=== PATIENT | female | born 1960 | race Caucasian/White ===

== ENCOUNTER → 2020-01-15 09:24 | Outpatient (BNVA) | payer SELFPAY | PROVIDERS: PCP Nurse Practitioner; Visit Provider Family Medicine | DX: I10 Essential (primary) hypertension (principal); E55.9 Vitamin D deficiency, unspecified; E66.9 Obesity, unspecified; L82.1 Other seborrheic keratosis; F17.219 Nicotine dependence, cigarettes, with unspecified nicotine-induced disorders | CPT/HCPCS: 82043 ==

== ENCOUNTER → 2020-01-27 08:41 | Outpatient (BNVA) | payer SELFPAY | PROVIDERS: PCP Nurse Practitioner; Visit Provider Family Medicine | DX: I10 Essential (primary) hypertension (principal); E55.9 Vitamin D deficiency, unspecified | CPT/HCPCS: 80053; 80061; 82306; 85025 ==

== ENCOUNTER → 2020-04-07 08:10 | Outpatient (BNVA) | payer SELFPAY | PROVIDERS: PCP Nurse Practitioner; Visit Provider Family Medicine | DX: E78.5 Hyperlipidemia, unspecified (principal) | CPT/HCPCS: 80053 ==

== ENCOUNTER → 2020-05-04 08:44 | Outpatient (BNVA) | payer SELFPAY | PROVIDERS: PCP Nurse Practitioner; Visit Provider Family Medicine | DX: E78.5 Hyperlipidemia, unspecified (principal); E55.9 Vitamin D deficiency, unspecified; I10 Essential (primary) hypertension; K21.9 Gastro-esophageal reflux disease without esophagitis; F17.219 Nicotine dependence, cigarettes, with unspecified nicotine-induced disorders | CPT/HCPCS: 80053; 80061; 82306 ==

== ENCOUNTER 2021-03-01 18:07 | Outpatient (CLI) | payer OTHER, SELFPAY ==
[2021-03-02 00:02] LABS: Basophils # 0.1 10^3/uL (0.0-0.1); Basophils % 1.1 %; Eosinophils # 0.2 10^3/uL (0.0-0.8); Eosinophils % 2.6 %; Hematocrit 40.2 % (37.0-47.0); Hemoglobin 12.7 g/dL (11.5-15.3); Lymphocytes # 2.1 10^3/uL (0.8-4.8); Lymphocytes % 28.1 %; Mean Corpuscular HGB Conc 31.6 g/dL (30.0-36.0); Mean Corpuscular Volume 91.8 fl (81-99); Mean Platelet Volume 10.1 fL (7.4-10.4); Monocytes # 0.5 10^3/uL (0.2-0.9); Monocytes % 5.9 %; Neutrophils # 4.73 10^3/uL (1.8-7.7); Neutrophils % 62.2 %; Nucleated Red Blood Cells % 0 %; Platelet Count 418 10^3/cmm (130-400); Red Blood Count 4.38 10^6/uL (4.1-5.3); Red Cell Distribution Width 13.7 % (12.1-15.1); White Blood Count 7.6 10^3/uL (4.0-10.0)
[2021-03-02 00:24] LABS: Alanine Aminotransferase 7 U/L (0-33); Albumin Level 3.7 g/dL (3.5-5.2); Alkaline Phosphatase 78 IU/L (35-105); Anion Gap 14.9 (5-19); Aspartate Amino Transferase 5 U/L (0-32); Blood Urea Nitrogen 17 mg/dL (8-23); Calcium 9.5 mg/dL (8.5-10.5); Carbon Dioxide 25 mmol/L (22-29); Chloride 101 mmol/L (98-107); Chol HDL Ratio 3.81 mg/dL (0.0-4.40); Cholesterol 137 mg/dL (0-200); Globulin 3.1 g/dL (1.3-4.6); Glomerular Filtration Rate 50.5 mL/min (90-130); Glucose 103 mg/dL (65-115); HDL Cholesterol 36 mg/dL (60-100); LDL Cholesterol Calculated 65 mg/dL (50-129); LDL HDL Ratio 1.81 RATIO (0.00-3.22); Osmolality Calculated 286 mOsm/kg (285-295); Potassium 3.9 mmol/L (3.5-5.1); Sodium 137 mmol/L (136-145); Total Bilirubin 0.3 mg/dL (0.15-1.2); Total Protein 6.8 g/dL (6.6-8.7); Triglycerides 181 mg/dL (0-150)
[2021-03-02 02:27] LABS: Creatinine Urine, Random 188 mg/dL (28-217)
[2021-03-02 02:30] LABS: Microalbum Creatinine Ratio Ur 5 mg/dL (0-20); Microalbumin Random Urine 1 ug/dL (0-20)
== END 2021-03-01 18:08 | disposition home or self-care (01) ==
PROVIDERS: Visit Provider Family Medicine
DX: I10 Essential (primary) hypertension (principal)
CPT/HCPCS: 36415; 80053; 80061; 82044; 85025

== ENCOUNTER 2021-07-29 22:50 | Outpatient (CLI) | payer OTHER, SELFPAY ==
[2021-07-29 23:21] LABS: Add Urine Microscopic? NO; Charge for UA Resulting for Rev
[2021-07-29 23:24] LABS: Bilirubin Urine Neg (Negative); Blood Urine Neg (Negative); Glucose Urine UA Norm (Normal); Ketones Urine Negative (Negative); Leukocyte Esterase Urine Negative (Negative); Nitrate Urine Negative (Negative); Protein Urine Neg (Negative); Urine Appearance Clear (CLEAR); Urine Color Yellow (Yellow); Urobilinogen Urine Norm (Negative); pH Urine 5 (5-7)
[2021-07-29 23:29] LABS: Basophils # 0.1 10^3/uL (0.0-0.1); Basophils % 1.1 %; Eosinophils # 0.3 10^3/uL (0.0-0.8); Eosinophils % 3.8 %; Hematocrit 41.4 % (37.0-47.0); Hemoglobin 13.1 g/dL (11.5-15.3); Lymphocytes % 40.8 %; Mean Corpuscular HGB Conc 31.6 g/dL (30.0-36.0); Mean Corpuscular Hemoglobin 28.5 pg (28.0-34.0); Mean Corpuscular Volume 90.2 fl (81-99); Mean Platelet Volume 9.8 fL (7.4-10.4); Monocytes # 0.6 10^3/uL (0.2-0.9); Monocytes % 7.5 %; Neutrophils # 3.43 10^3/uL (1.8-7.7); Neutrophils % 46.5 %; Nucleated Red Blood Cells % 0 %; Platelet Count 446 10^3/cmm (130-400); Red Blood Count 4.59 10^6/uL (4.1-5.3); White Blood Count 7.4 10^3/uL (4.0-10.0)
[2021-07-29 23:40] LABS: Creatinine Urine, Random 105 mg/dL (28-217); Microalbum Creatinine Ratio Ur 10 mg/dL (0-20); Microalbumin Random Urine 1 ug/dL (0-20)
[2021-07-29 23:52] LABS: Albumin Level 4.5 g/dL (3.5-5.2); Blood Urea Nitrogen 15 mg/dL (8-23); Calcium 10.3 mg/dL (8.5-10.5); Carbon Dioxide 28 mmol/L (22-29); Chloride 100 mmol/L (98-107); Glomerular Filtration Rate 45.7 mL/min (90-130); Glucose 102 mg/dL (65-115); Phosphorus 4.4 mg/dL (2.5-4.5); Sodium 138 mmol/L (136-145)
[2021-07-30 00:02] LABS: Calcium 10.4 mg/dL (8.5-10.5)
[2021-07-30 00:07] LABS: 25 Hydroxy Vitamin D 48 ng/mL (30-100)
[2021-07-30 00:09] LABS: Parathyroid Hormone 96.9 pg/mL (15-65)
== END 2021-07-29 22:51 | disposition home or self-care (01) ==
LOC: LAB 22:55
PROVIDERS: Visit Provider Internal Medicine Nephrology
DX: N18.31 Chronic kidney disease, stage 3a (principal)
CPT/HCPCS: 36415; 80069; 81003; 82044; 82306; 82310; 83970; 85025

== ENCOUNTER 2021-08-20 06:05 | Emergency (ER) | payer OTHER, SELFPAY ==
[2021-08-20 06:09] VITALS: BP 133/86; PULSE 97; RESP 18; TEMP 36.6; O2SAT 97; BMI 34.0
[2021-08-20 06:23] VITALS: BP 133/78; PULSE 106; RESP 18; O2SAT 96
--- NOTE | 2021-08-20 06:32 | W.ED.EAR ---
HPI - Ear Problem General: Chief complaint: Ear Stated complaint: Hearing problem Time Seen by Provider: 08/20/21 06:16 History of Present Illness: Patient comes in with right ear pain that started about a week ago. States she was seen and started on p.o. antibiotics but has had no improvement. States the pain continues to get worse. Associated symptoms: Reports ear or mastoid pain; Denies fever(s), headache(s) or neck pain Review of Systems Const: Denies: fever(s) or body aches Eyes: Denies: change in vision or blurry vision ENMT: Reports: ear or mastoid pain; Denies: throat pain or odynophagia Card: Denies: chest pain or palpitations Resp: Denies: dyspnea or productive cough GI: Denies: abdominal pain, nausea or vomiting : Denies: flank pain or dysuria Musc: Denies: neck pain or back pain Skin/Breast: Denies: rash or pruritus Neuro: Denies: headache(s) or numbness in extremities Psych: Denies: anxiety or change in appetite Endo: Denies: polyuria or excessive sweating PFSH ED PFSH: Medical History (Updated 08/20/21 @ 06:29 by Samson Davis MD) Heart murmur Hyperlipemia Hypertension Surgical History History of total hysterectomy Family History Brother Hypertension Social History Smoking and tobacco status: light tobacco smoker (1 cigarette every eighteen hours) cigarettes Packs smoked per day: 0.50 Alcohol intake: never Physical Exam Const: COMMON NORMALS: no acute distress, patient oriented x3, healthy appearing and alert HENMT: COMMON NORMALS: normocephalic and atraumatic HEAD & SCALP: normocephalic and atraumatic EXTERNAL EAR: Yes other (Erythema and swelling of the right external auditory ear canal) Eye: COMMON NORMALS: Equal, round and reactive pupils present and EOMs intact bilaterally PUPIL: Yes Equal, round and reactive pupils present Neck/C-Spine: COMMON NORMALS: full ROM and supple Resp: COMMON NORMALS: normal respiratory effort, No retractions and No use of accessory muscles Cardio: COMMON NORMALS: regular rate and regular rhythm RATE: regular rate RHYTHM: regular rhythm GI: COMMON NORMALS: Normal to inspection, nondistended, normoactive bowel sounds present, Soft to palpation and non-tender PALPATION: Yes Soft to palpation Back/Pelvis: COMMON NORMALS: thoracic and lumbar spine normal to inspection and no thoracic nor lumbar tenderness Extremity: COMMON NORMALS: normal to inspection and full ROM Neuro: COMMON NORMALS: patient oriented x3 SENSORIUM/ORIENTATION: Yes alert Psych: COMMON NORMALS: mental status grossly normal and cooperative Skin: COMMON NORMALS: no rashes or lesions noted and no wounds GENERAL SKIN EXAM: no rashes or lesions noted Course Vital Signs: Vital signs: Vital Signs Temperature 98 F 08/20/21 06:09 Pulse Rate 106 H 08/20/21 06:23 Respiratory Rate 18 08/20/21 06:23 Blood Pressure 133/78 08/20/21 06:23 Pulse Oximetry 96 08/20/21 06:23 [facility] - Ear Medical Decision Making Patient comes in with right ear pain that started about a week ago. States she was seen and started on p.o. antibiotics but has had no improvement. States the pain continues to get worse. On physical exam she has erythema, and swelling of her external auditory ear canal on the right. We will start her on Ciprodex drops and discharged with precautions return for worsening or changing symptoms. Discharge Plan Discharge Patient Disposition: Home Clinical Impression: Otitis externa Condition: Stable Prescriptions: New Ciprodex 0.3-0.1 % drops,suspension 4 drp otic (ear) BID 7 Days Qty: 7.5 0RF No Action aspirin 81 mg tablet,delayed release (DR/EC) 81 mg PO DAILY 0RF cholecalciferol (vitamin D3) 50 mcg (2,000 unit) tablet 50 mcg PO DAILY 0RF omega-3 fatty acids [[employer] [place]-3] 1,000 mg capsule 1,000 mg PO DAILY 0RF pantoprazole [Protonix] 40 mg tablet,delayed release (DR/EC) 40 mg PO DAILY 90 Days Qty: 90 1RF Rx Instructions: 340 B valsartan-hydrochlorothiazide 160-12.5 mg tablet 1 tab PO QDAY 90 Days Qty: 90 1RF rosuvastatin [Crestor] 10 mg tablet 10 mg PO DAILY 90 Days Qty: 90 1RF clonidine HCl 0.1 mg tablet 0.1 mg PO .bedtime 90 Days Qty: 90 1RF Discharge Orders: Discharge ED (Routine); Ordered 08/20/21 Ordered By: Samson Davis Coding Level of Care Code 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
== END 2021-08-20 06:59 | disposition home or self-care (01) ==
PROVIDERS: Emergency Provider Emergency Medicine
DX: H60.91 Unspecified otitis externa, right ear (principal); Z79.82 Long term (current) use of aspirin; E78.5 Hyperlipidemia, unspecified; I10 Essential (primary) hypertension; F17.210 Nicotine dependence, cigarettes, uncomplicated
CPT/HCPCS: 99283

== ENCOUNTER 2021-09-02 08:44 | Outpatient (CLI) | payer OTHER, SELFPAY ==
--- NOTE | 2021-09-02 09:04 | US_ITS ---
WS: [id number] RENAL ULTRASOUND HISTORY: STAGE 3A CHRONIC KIDNEY DZ COMPARISON: None available. TECHNIQUE: 2-D and color Doppler imaging of the kidney submitted. Right kidney: 8.4 cm x 4.4 cm x 4.2 cm. Mild atrophy with no hydronephrosis. No solid mass or cortical thinning. Left kidney: 9.8 cm x 4.6 cm x 4.7 cm. Normal size kidney. No hydronephrosis or solid mass identified. Aorta: Normal. Urinary Bladder: Very minimally distended urinary bladder. US/US renal BI* [id number] IMPRESSION: 1. Very mild RIGHT renal atrophy. 2. Normal size LEFT kidney. 3. No hydronephrosis or cortical thinning.
== END 2021-09-02 08:45 | disposition home or self-care (01) ==
LOC: RAD 08:48
PROVIDERS: PCP Family Medicine; Visit Provider Registered Nurse
DX: N18.31 Chronic kidney disease, stage 3a (principal); N26.1 Atrophy of kidney (terminal)
CPT/HCPCS: 76770

== ENCOUNTER 2021-12-09 00:30 | Outpatient (CLI) | payer OTHER, SELFPAY ==
[2021-12-09 00:46] LABS: Basophils # 0.1 10^3/uL (0.0-0.1); Eosinophils # 0.1 10^3/uL (0.0-0.8); Eosinophils % 1.8 %; Hematocrit 37.1 % (37.0-47.0); Hemoglobin 12.3 g/dL (11.5-15.3); Lymphocytes # 2.2 10^3/uL (0.8-4.8); Lymphocytes % 29.9 %; Mean Corpuscular HGB Conc 33.2 g/dL (30.0-36.0); Mean Corpuscular Hemoglobin 28.9 pg (28.0-34.0); Mean Corpuscular Volume 87.3 fl (81-99); Mean Platelet Volume 9.8 fL (7.4-10.4); Monocytes # 0.4 10^3/uL (0.2-0.9); Neutrophils # 4.48 10^3/uL (1.8-7.7); Neutrophils % 62.2 %; Nucleated Red Blood Cells % 0 %; Platelet Count 413 10^3/cmm (130-400); Red Blood Count 4.25 10^6/uL (4.1-5.3); Red Cell Distribution Width 13.8 % (12.1-15.1); White Blood Count 7.2 10^3/uL (4.0-10.0)
[2021-12-09 00:47] LABS: Erythrocyte Sedimentation Rate 6 mm/hr (0-15)
[2021-12-09 01:09] LABS: Alanine Aminotransferase 11 U/L (0-33); Alkaline Phosphatase 88 IU/L (35-105); Anion Gap 14.8 (5-19); Aspartate Amino Transferase 7 U/L (0-32); Blood Urea Nitrogen 16 mg/dL (8-23); C Reactive Protein 14.7 mg/L (0.0-4.9); Calcium 9.2 mg/dL (8.5-10.5); Carbon Dioxide 27 mmol/L (22-29); Chloride 99 mmol/L (98-107); Globulin 2.9 g/dL (1.3-4.6); Glomerular Filtration Rate 41.5 mL/min (90-130); Glucose 124 mg/dL (65-115); Osmolality Calculated 287 mOsm/kg (285-295); Potassium 3.8 mmol/L (3.5-5.1); Sodium 137 mmol/L (136-145); Total Bilirubin 0.3 mg/dL (0.15-1.2); Total Protein 6.9 g/dL (6.6-8.7)
== END 2021-12-09 00:31 | disposition home or self-care (01) ==
PROVIDERS: PCP Nurse Practitioner Family; Visit Provider Nurse Practitioner Family
DX: I12.9 Hypertensive chronic kidney disease with stage 1 through stage 4 chronic kidney disease, or unspecified chronic kidney disease (principal); I10 Essential (primary) hypertension; E78.5 Hyperlipidemia, unspecified; F17.210 Nicotine dependence, cigarettes, uncomplicated; N18.31 Chronic kidney disease, stage 3a
CPT/HCPCS: 36415; 80053; 85025; 85651; 86140

== ENCOUNTER 2021-12-29 07:42 | Outpatient (CLI) | payer OTHER, SELFPAY ==
--- NOTE | 2021-12-29 08:00 | MR_ITS ---
WS: [id number] MRI CERVICAL SPINE NONCONTRAST TECHNIQUE: Sagittal T1, T2 and STIR imaging. Axial T2, gradient, and fiesta imaging. CLINICAL INFORMATION: M54.12 - Radiculopathy, cervical region COMPARISON: None. FINDINGS: Straightening of the normal cervical lordosis. Cord signal is normal. Disc bulging worse at C5-C6. Sm all LEFT pericentral disc protrusion C5-C6 with slight contact of the cervical cord. C2-C3: Tiny shallow central protrusion. Mild facet arthropathy. Spinal canal and foramen are patent. C3-C4: Mild facet arthropathy. Mild LEFT bony foraminal narrowing. Spinal canal is patent. C4-C5: Mild disc osteophytic ridging. Mild LEFT and no significant RIGHT foraminal narrowing. Mild fa cet arthropathy. Spinal canal is patent. C5-C6: LEFT pericentral disc osteophyte protrusion. Mild central canal stenosis. Severe LEFT bony fo raminal narrowing. Mild facet arthropathy. C6-C7: Disc osteophyte complex eccentric to the LEFT with LEFT foraminal protrusion. Moderate LEFT fo raminal narrowing. RIGHT foramen is patent. Spinal canal is patent. Mild facet arthropathy. C7-T1: Mild disc osteophytic ridging. Spinal canal and foramen are patent. Visualized brain stem structures: Normal. Prevertebral soft tissues: Normal. MR/MR cervical spin wo con* [id number] IMPRESSION: 1. Straightening of the normal cervical lordosis. Cord signal is normal. 2. LEFT pericentral disc osteophyte protrusion C5-C6 with slight contact of th e cervical cord and mild central canal stenosis. Severe bony LEFT C5-C6 foramin al narrowing. 3. Mild LEFT C4-C5 bony foraminal narrowing. 4. Disc osteophyte complex eccentric to the LEFT C6-C7 with LEFT foraminal pro trusion. Moderate LEFT foraminal narrowing. 5. Mild to moderate facet arthropathy C5-C6.
== END 2021-12-29 07:43 | disposition home or self-care (01) ==
PROVIDERS: PCP Nurse Practitioner Family; Visit Provider Nurse Practitioner Family
DX: M54.12 Radiculopathy, cervical region (principal); M25.78 Osteophyte, vertebrae; M47.812 Spondylosis without myelopathy or radiculopathy, cervical region; M50.223 Other cervical disc displacement at C6-C7 level
CPT/HCPCS: 72141

== ENCOUNTER → 2022-01-25 07:51 | Outpatient (BNVA) | payer OTHER, SELFPAY | PROVIDERS: PCP Family Medicine; Referring Provider Nurse Practitioner Family; Visit Provider Orthopaedic Surgery | DX: M50.20 Other cervical disc displacement, unspecified cervical region (principal); M54.12 Radiculopathy, cervical region | CPT/HCPCS: 72050 ==

== ENCOUNTER 2022-08-11 04:16 | Outpatient (CLI) | payer OTHER, SELFPAY ==
[2022-08-11 04:45] LABS: Chol HDL Ratio 6.21 mg/dL (0.0-4.40); Cholesterol 205 mg/dL (0-200); HDL Cholesterol 33 mg/dL (60-100); LDL Cholesterol Calculated 117 mg/dL (50-129); LDL HDL Ratio 3.55 RATIO (0.00-3.22); Triglycerides 276 mg/dL (0-150)
== END 2022-08-11 04:17 | disposition home or self-care (01) ==
PROVIDERS: PCP Nurse Practitioner Family; Visit Provider Nurse Practitioner Family
DX: E78.5 Hyperlipidemia, unspecified (principal)
CPT/HCPCS: 36415; 80061

== ENCOUNTER 2023-07-13 03:06 | Outpatient (CLI) | payer OTHER, SELFPAY ==
[2023-07-13 03:22] LABS: Basophils # 0.1 10^3/uL (0.0-0.1); Basophils % 1.2 %; Eosinophils # 0.3 10^3/uL (0.0-0.8); Eosinophils % 3.8 %; Hematocrit 34.8 % (36-47); Lymphocytes # 2.7 10^3/uL (0.8-4.8); Lymphocytes % 38.5 %; Mean Corpuscular HGB Conc 32.8 g/dL (30-55); Mean Corpuscular Hemoglobin 28.9 pg (27-33); Mean Corpuscular Volume 88.3 fl (85-98); Monocytes # 0.5 10^3/uL (0.2-0.9); Monocytes % 7.8 %; Neutrophils # 3.37 10^3/uL (1.8-7.7); Neutrophils % 48.6 %; Nucleated Red Blood Cells % 0 %; Platelet Count 366 10^3/cmm (157-399); Red Blood Count 3.94 10^6/uL (3.85-5.65); Red Cell Distribution Width 14.1 % (12.1-15.1); White Blood Count 6.93 10^3/uL (3.29-11.43)
[2023-07-13 03:43] LABS: Alanine Aminotransferase 11 U/L (0-33); Albumin Level 3.8 g/dL (3.5-5.2); Alkaline Phosphatase 80 U/L (35-105); Anion Gap 17.1 (5-19); Aspartate Amino Transferase 8 U/L (0-32); Blood Urea Nitrogen 14 mg/dL (8-23); Calcium 9.4 mg/dL (8.5-10.5); Carbon Dioxide 26 mmol/L (22-29); Chloride 102 mmol/L (98-107); Chol HDL Ratio 6.59 mg/dL (0.0-4.40); Cholesterol 257 mg/dL (0-200); Globulin 2.8 g/dL (1.3-4.6); Glomerular Filtration Rate 41.4 mL/min (90-130); Glucose 118 mg/dL (65-115); HDL Cholesterol 39 mg/dL (60-100); LDL Cholesterol Calculated 168 mg/dL (50-129); LDL HDL Ratio 4.31 RATIO (0.00-3.22); Osmolality Calculated 294 mOsm/kg (285-295); Potassium 4.1 mmol/L (3.5-5.1); Sodium 141 mmol/L (136-145); Total Bilirubin 0.2 mg/dL (0.15-1.2); Total Protein 6.6 g/dL (6.6-8.7); Triglycerides 248 mg/dL (0-150)
== END 2023-07-13 03:07 | disposition home or self-care (01) ==
LOC: LAB 03:10
PROVIDERS: PCP Nurse Practitioner Family; Visit Provider Nurse Practitioner Family
DX: Z79.899 Other long term (current) drug therapy (principal)
CPT/HCPCS: 36415; 80053; 80061; 85025

== ENCOUNTER 2023-09-15 12:13 | Emergency (ER) | payer OTHER, SELFPAY ==
[2023-09-15 12:15] VITALS: BP 149/81; PULSE 53; RESP 16; TEMP 36.4; O2SAT 96; BMI 27.4
--- NOTE | 2023-09-15 12:48 | XRR_ITS ---
PROCEDURE INFORMATION: Exam: XR Chest Exam date and time: 09/15/2023 12:57 PM Age: 63 years old Clinical indication: Shortness of breath TECHNIQUE: Imaging protocol: Radiologic exam of the chest. Views: 1 view. COMPARISON: CR XR cervical spine 4-5V [id number] 01/25/2022 7:53 AM FINDINGS: Lungs: Several small basilar nodular opacities are likely granulomas. Pleural spaces: Unremarkable. No pleural effusion. No pneumothorax. Heart/Mediastinum: Unremarkable. No cardiomegaly. Bones/joints: Unremarkable. XR/XR chest 1V [id number] IMPRESSION: Several small basilar nodular opacities are likely granulomas. No acute findings.
--- NOTE | 2023-09-15 13:16 | ECG_ITS ---
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 Measurements Intervals [place] Rate: 56 P: 47 MA: 168 QRS: 19 QRSD: 90 T: 53 QT: 476 QTc: 461 Interpretive Statements SINUS BRADYCARDIA POSSIBLE LEFT ATRIAL ENLARGEMENT [-0.1mV P-WAVE IN V1/V2] Compared to ECG 03/26/2019 20:48:16 Sinus rhythm no longer present Electronically Signed On 09-15-2023 17:00:17 CDT by Dawit Garcia M.D. [email or web address] general hospitalProlacta Bioscienceour lady of [facility].[employer]/store/OM/[id number]
--- NOTE | 2023-09-15 13:24 | ED_ITS ---
HPI - Dizziness 2 General: Chief Complaint: Dizziness Stated Complaint: dizzy Time Seen by Provider: 09/15/23 13:11 Source: patient Mode of arrival: wheelchair Limitations: no limitations History of Present Illness: HPI Narrative: Patient is a 63-year-old female presents to ED today with a complaint of cough, congestion, and dizziness. Patient states 2 days ago she began having a productive cough and wheezing. She states she works here at [employer] and was around a sick, coughing patient and thinks she caught what they had . She states by that evening she was running fevers of 101 that continued until yesterday. She has been afebrile since then. She reports continued cough and productive sputum. Feels like she has some pain in her left lung. She is reporting dizziness. No other neurologic symptoms. She does state yesterday her ears felt muffled . MD elicited complaint: dizziness Onset (ago): day(s) Severity: moderate Description: room spinning History of similar symptoms: Yes (states she had similar symptoms once previously) Exacerbating factors: movement/ambulation Relieving factors: remaining still Associated symptoms: Reports no associated symptoms, change in hearing and cough; Denies chills, headache(s), nausea, nasal congestion, palpitations, syncope or vomiting Associated neuro symptoms: Reports no associated symptoms; Deny confusion or numbness in extremities Stroke scale total: 0 Review of Systems 2 Const: Denies: fever(s), chills, body aches or fatigue Eyes: Denies: change in vision, blurry vision, photophobia, eye discomfort or eye discharge ENMT: Reports: change in hearing; Denies: throat pain, odynophagia, nasal discharge, nasal congestion or sinus pain Card: Denies: palpitations, irregular heart rhythm, edema, swelling of feet/ankles, lightheadedness, syncope, pre-syncope, dyspnea on exertion, orthopnea, leg pain with exertion or acrocyanosis Resp: Reports: productive cough and chest congestion; Denies: dyspnea, non-productive cough, wheezing or hemoptysis GI: Denies: nausea, vomiting or diarrhea Musc: Denies: neck pain, back pain, extremity pain or joint pain Skin/Breast: Denies: rash Neuro: Reports: dizziness; Denies: headache(s), numbness in extremities, weakness in extremities, sensory changes, lack of coordination, frequent falls, confusion, behavioral changes, Slurred speech present, difficulty communicating thoughts or seizure-like activity All/Imm: Denies: facial swelling or seasonal rhinorrhea PFSH ED 2 PFSH: Medical History Seborrheic keratosis Chronic middle ear effusion Hyperlipemia Hypertension Heart murmur Surgical History History of total hysterectomy Family History Brother Hypertension Social History Smoking and tobacco/nicotine status: current some day tobacco/nicotine user cigarettes Packs smoked per day: 0.50 Alcohol intake: never Substance/Drug Use: never Physical Exam 2 Const: COMMON NORMALS: no acute distress, average body habitus, patient oriented x3, no limitations, healthy appearing, alert and well nourished G ENERAL APPEARANCE: cooperative ORIENTATION/CONSCIOUSNESS: Yes awake, Yes oriented to person, Yes oriented to place and Yes oriented to time HENMT: COMMON NORMALS: normocephalic, atraumatic, hearing grossly normal bilaterally, external ears normal, EAC's normal, Normal external nose present, Normal nasal mucous membranes and turbinates present, moist oral mucous membranes and oropharynx normal HEAD & SCALP: normal to inspection, normocephalic and atraumatic FACE & SINUS: normal facial exam, sinuses nontender and face symmetric NOSE: Normal external nose present and Normal nasal mucous membranes and turbinates present EXTERNAL EAR: Yes external ears normal EXTERNAL AUDITORY CANAL: EAC's normal TYMPANIC MEMBRANE: TM abnormal (R>L serous otitis ) MOUTH: Normal oral and palatal mucosa present and lip normal THROAT: posterior oropharynx normal, tonsils normal and uvula midline Eye: COMMON NORMALS: Equal, round and reactive pupils present, EOMs intact bilaterally and conjunctivae normal CONJUNCTIVA: Yes conjunctivae normal P UPIL: Yes Equal, round and reactive pupils present Neck/C-Spine: COMMON NORMALS: no lymphadenopathy Chest: COMMONS NORMALS: normal inspection of the chest OTHER: mild tenderness L lateral chest wall Resp: COMMON NORMALS: normal respiratory effort and clear to auscultation bilaterally AUSCULTATION: clear to auscultation bilaterally Cardio: COMMON NORMALS: regular rhythm RATE: bradycardic RHYTHM: regular rhythm Back/Pelvis: COMMON NORMALS: thoracic and lumbar spine normal to inspection Extremity: COMMON NORMALS: normal to inspection GENERAL: Yes normal exam except as noted Neuro: AIME COMA SCALE: document GCS findings [place] coma scale eye opening: Spontaneous Aime coma scale verbal response: Orientated [place] coma scale motor response: Obey commands [place] coma scale total score: 15 COMMON NORMALS: patient oriented x3, CN's II-XII intact bilaterally, moves all extremities, no focal motor deficits and no sensory deficits noted S ENSORIUM/ORIENTATION: Yes alert, Yes oriented to person, Yes oriented to place and Yes oriented to time Skin: COMMON NORMALS: no rashes or lesions noted GENERAL SKIN EXAM: no rashes or lesions noted Course 2 Vital Signs: Vital signs: Vital Signs Temperature 97.5 F L 09/15/23 12:15 Pulse Rate 53 L 09/15/23 12:15 Respiratory Rate 16 09/15/23 12:15 Blood Pressure 149/81 09/15/23 12:15 Pulse Oximetry 96 09/15/23 12:15 Oxygen Delivery Me thod Room Air 09/15/23 12:15 MDM - Dizziness Medical Decision Making Patient appears in no acute distress. Her vital signs are stable. Blood work overall is unremarkable. She did have a baseline troponin ordered from triage. This ended up being scantly elevated at 12. Based on her history and physical exam I do not have any concern for any type of acute coronary ischemia. She is positive for influenza A which explains her symptoms and clinical illness. She was ambulatory here to the bathroom without difficulty or assistance. I do not have any concern for central etiology for her dizziness. She was offered Tamiflu to which she declines. She is stable for discharge with instructions for symptomatic/conservative therapies at home for her influenza. Medical Records I reviewed the patient's medical records. Lab Data I reviewed the patient's lab results. 09/15/23 13:22 09/15/23 13:22 Radiology Impressions Chest X-Ray 09/15/23 12:48 IMPRESSION: Several small basilar nodular opacities are likely granulomas. No acute findings. Laboratory Results WBC 2.98 10^3/uL (3.29-11.43) L 09/15/23 13:22 RBC 3.97 10^6/uL (3.85-5.65) 09/15/23 13:22 Hgb 11.40 g/dL (11.27-16.99) 09/15/23 13:22 Hct 35.8 % (36-47) L 09/15/23 13:22 MCV 90.2 fl (85-98) 09/15/23 13:22 MCH 28.7 pg (27-33) 09/15/23 13:22 MCHC 31.8 g/dL (30-55) 09/15/23 13:22 RDW 14.8 % (12.1-15.1) 09/15/23 13:22 Plt Count 261 10^3/cmm (157-399) 09/15/23 13:22 MPV 10.7 fL (7.4-10.4) H 09/15/23 13:22 Neut % (Auto) 58.1 % 09/15/23 13:22 Lymph % (Auto) 28.2 % 09/15/23 13:22 Josephine % (Auto) 9.4 % 09/15/23 13:22 Eos % (Auto) 2.7 % 09/15/23 13:22 Baso % (Auto) 1.3 % 09/15/23 13:22 Neut # (Auto) 1.73 10^3/uL (1.8-7.7) L 09/15/23 13:22 Lymph # (Auto) 0.8 10^3/uL (0.8-4.8) 09/15/23 13:22 Josephine # (Auto) 0.3 10^3/uL (0.2-0.9) 09/15/23 13:22 Eos # (Auto) 0.1 10^3/uL (0.0-0.8) 09/15/23 13:22 Baso # (Auto) 0.0 10^3/uL (0.0-0.1) 09/15/23 13:22 Nucleated RBC % (auto) 0 % 09/15/23 13: Nucleated RBCs # 0.0 /100WBC 09/15/23 13:22 Sodium 141 mmol/L (136-145) 09/15/23 13:22 Potassium 3.7 mmol/L (3.5-5.1) 09/15/23 13:22 Chloride 106 mmol/L (98-107) 09/15/23 13:22 Carbon Dioxide 23 mmol/L (22-29) 09/15/23 13:22 Anion Gap 15.7 (5-19) 09/15/23 13:22 BUN 18 mg/dL (8-23) 09/15/23 13:22 Creatinine 1.1 mg/dL (0.5-0.9) H 09/15/23 13:22 GFR Calculation 50.0 mL/min (90-130) L 09/15/23 13:22 Glucose 127 mg/dL (65-115) H 09/15/23 13:22 Calculated Osmolality 295 mOsm/kg (285-295) 09/15/23 13:22 Calcium 8.8 mg/dL (8.5-10.5) 09/15/23 13:22 Total Bilirubin 0.2 mg/dL (0.15-1.2) 09/15/23 13:22 AST 11 U/L (0-32) 09/15/23 13:22 ALT 16 U/L (0-33) 09/15/23 13:22 Alkaline Phosphatase 73 U/L (35-105) 09/15/23 13:22 Troponin T Baseline 12 ng/L (0-10) H 09/15/23 13:22 Total Protein 5.8 g/dL (6.6-8.7) L 09/15/23 13:22 Albumin 3.7 g/dL (3.5-5.2) 09/15/23 13:22 Globulin 2.1 g/dL (1.3-4.6) 09/15/23 13:22 Amorphous Sediment Not Reportable 09/15/23 13:54 Influenza Type A Ag positive (Negative) H 09/15/23 13:28 Influenza Type B Ag negative (Negative) 09/15/23 13:28 SARS-CoV-2 Ag (Rapid) negative (Negative) 09/15/23 13:28 All radiology interpretation(s) finalized by discharge Discharge Plan Discharge Patient Disposition: Home Clinical Impression: Influenza A Condition: Stable Prescriptions: No Action vitamin E (dl, acetate) 180 mg (400 unit) capsule 180 mg PO .four days a week vitamin B complex Capsule 1 cap PO DAILY tretinoin [Retin-A] 0.025 % cream 1 applic topical Q2D Qty: 45 2RF valsartan-hydrochlorothiazide 160-12.5 mg tablet 1 tab PO DAILY Qty: 90 0RF baclofen 20 mg tablet 10 mg PO TID PRN (Reason: spasms) Qty: 60 5RF clonidine HCl 0.2 mg tablet 0.2 mg PO BEDTIME Discharge Orders: Discharge ED (Routine); Ordered 09/15/23 Ordered By: Hyacinth Juarez Referrals: Gerry Lee FNP [Primary Care Provider] - Patient Instructions: Influenza (DC) Stand Alone Forms: Work/School Release Coding Level of Care Code 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
[2023-09-15 13:36] LABS: Basophils % 1.3 %; Eosinophils # 0.1 10^3/uL (0.0-0.8); Eosinophils % 2.7 %; Hematocrit 35.8 % (36-47); Lymphocytes # 0.8 10^3/uL (0.8-4.8); Lymphocytes % 28.2 %; Mean Corpuscular HGB Conc 31.8 g/dL (30-55); Mean Corpuscular Hemoglobin 28.7 pg (27-33); Mean Corpuscular Volume 90.2 fl (85-98); Mean Platelet Volume 10.7 fL (7.4-10.4); Monocytes # 0.3 10^3/uL (0.2-0.9); Monocytes % 9.4 %; Neutrophils # 1.73 10^3/uL (1.8-7.7); Neutrophils % 58.1 %; Nucleated Red Blood Cells % 0 %; Platelet Count 261 10^3/cmm (157-399); Red Blood Count 3.97 10^6/uL (3.85-5.65); Red Cell Distribution Width 14.8 % (12.1-15.1); White Blood Count 2.98 10^3/uL (3.29-11.43)
[2023-09-15] MEDS: meclizine 25 mg tablet 50 MG PO (13:43)
[2023-09-15] MEDS: sodium chloride 0.9% 1,000 ML 999 ML IV (13:43)
[2023-09-15 13:51] LABS: Influenza A by IFA positive (Negative); Influenza B by IFA negative (Negative); SARS Covid-2 Antigen negative (Negative)
[2023-09-15 13:56] LABS: Alanine Aminotransferase 16 U/L (0-33); Albumin Level 3.7 g/dL (3.5-5.2); Alkaline Phosphatase 73 U/L (35-105); Anion Gap 15.7 (5-19); Aspartate Amino Transferase 11 U/L (0-32); Blood Urea Nitrogen 18 mg/dL (8-23); Calcium 8.8 mg/dL (8.5-10.5); Carbon Dioxide 23 mmol/L (22-29); Chloride 106 mmol/L (98-107); Creatinine Clr Calc Pharmacy 46.7172; Globulin 2.1 g/dL (1.3-4.6); Glucose 127 mg/dL (65-115); Osmolality Calculated 295 mOsm/kg (285-295); Potassium 3.7 mmol/L (3.5-5.1); Sodium 141 mmol/L (136-145); Total Bilirubin 0.2 mg/dL (0.15-1.2); Total Protein 5.8 g/dL (6.6-8.7)
[2023-09-15 13:57] LABS: Troponin(5th) Baseline 12 ng/L (0-10)
[2023-09-15 14:13] LABS: Bilirubin Urine Neg (Negative); Blood Urine 2+ (Negative); Glucose Urine UA Norm (Normal); Ketones Urine Negative (Negative); Leukocyte Esterase Urine Negative (Negative); Nitrate Urine Negative (Negative); Protein Urine Trace (Negative); Urine Appearance Clear (CLEAR); Urine Color Yellow (Yellow); Urobilinogen Urine Norm (Negative); pH Urine 5 (5-7)
[2023-09-15 14:15] LABS: Add Urine Culture? No; Bacteria Urine TRACE /hpf; RBC Urine 0-4 /hpf (0-2)
[2023-09-15 14:51] VITALS: BP 149/81; PULSE 53; RESP 16; TEMP 36.4; O2SAT 96
== END 2023-09-15 14:54 | disposition home or self-care (01) ==
PROVIDERS: Emergency Medicine; Emergency Provider Physician Assistant; PCP Nurse Practitioner Family
DX: J10.1 Influenza due to other identified influenza virus with other respiratory manifestations (principal); Z11.52 Encounter for screening for COVID-19; E78.5 Hyperlipidemia, unspecified; I10 Essential (primary) hypertension; F17.210 Nicotine dependence, cigarettes, uncomplicated
CPT/HCPCS: 36415; 71045; 80053; 81001; 84484; 85025; 87426; 87804; 93005; 96360; 99285; J7030; J8597

== ENCOUNTER 2023-10-24 03:38 | Emergency (ER) | payer OTHER, SELFPAY ==
[2023-10-24 03:51] VITALS: BP 178/125; PULSE 79; RESP 18; TEMP 36.7; O2SAT 99; BMI 30.2
--- NOTE | 2023-10-24 03:56 | ED_ITS ---
HPI - URI/Sore Throat General: Stated Complaint: sore throat, cough Time Seen by Provider: 10/24/23 03:42 History of Present Illness: Patient presents to the ER with a sore throat and a cough. Patient says she has been around some of her family has had strep throat and if she feels like she has the same. Patient says it does hurt to swallow she is also coughing up some brown nasty sputum. This all started within the last day or 2 and peers to be getting worse. Review of Systems General: Reports: 10 or more systems reviewed and unremarkable except in HPI and below PFSH ED PFSH: Medical History Seborrheic keratosis Chronic middle ear effusion Hyperlipemia Hypertension Heart murmur Surgical History History of total hysterectomy Family History Brother Hypertension Social History Smoking and tobacco/nicotine status: current some day tobacco/nicotine user cigarettes Packs smoked per day: 0.50 Alcohol intake: never Substance/Drug Use: never Physical Exam Const: COMMON NORMALS: no acute distress, average body habitus, patient oriented x3, no limitations, healthy appearing, alert and well nourished HENMT: COMMON NORMALS: normocephalic, atraumatic, hearing grossly normal bilaterally, external ears normal, Normal external nose present and moist oral mucous membranes; oropharynx not normal (Exudative pharyngitis) HEAD & SCALP: normocephalic and atraumatic NOSE: Normal external nose present EXTERNAL EAR: Yes external ears normal Neck/C-Spine: COMMON NORMALS: no JVD Chest: COMMONS NORMALS: normal inspection of the chest and normal palpation of entire chest wall Resp: COMMON NORMALS: normal respiratory effort, No retractions, No use of ac cessory muscles and clear to auscultation bilaterally AUSCULTATION: clear to auscultation bilaterally Cardio: COMMON NORMALS: no JVD, regular rate, regular rhythm, S1 normal heart sound present, S2 normal heart sound present, No gallops present (Cardio), No clicks present (Cardio), No murmurs present (Cardio) and No rub (Cardio) RATE: regular rate RHYTHM: regular rhythm HEART SOUNDS: S1 normal heart sound present and S2 normal heart sound present Neuro: COMMON NORMALS: patient oriented x3 SENSORIUM/ORIENTATION: Yes alert MDM - URI/Sore Throat Medical Decision Making Patient been around family members with strep throat. Patient desires some antibiotics. We will send in a Z-Vern to her pharmacy. Patient declines formal testing for strep throat. Differential Diagnosis Likely pharyngitis Medical Records I reviewed the patient's medical records. Lab Data I reviewed the patient's lab results. No radiology studies performed this visit Discharge Plan Discharge Patient Disposition: Home Clinical Impression: Pharyngitis Qualifiers: Pharyngitis/tonsillitis etiology: unspecified etiology Qualified Code(s): J02.9 - Acute pharyngitis, unspecified Condition: Stable Prescriptions: New azithromycin 250 mg tablet See Rx Instructions .ROUTE .COMPLEX Qty: 6 0RF Rx Instructions: For 250 mg dose pack: take 500 mg today (day 1), then 250 mg for 4 days (days 2-5) No Action vitamin E (dl, acetate) 180 mg (400 unit) capsule 180 mg PO .four days a week vitamin B complex Capsule 1 cap PO DAILY tretinoin [Retin-A] 0.025 % cream 1 applic topical Q2D Qty: 45 2RF baclofen 20 mg tablet 10 mg PO TID PRN (Reason: spasms) Qty: 60 5RF valsartan-hydrochlorothiazide 160-12.5 mg tablet 1 tab PO DAILY Qty: 90 0RF clonidine HCl 0.2 mg tablet 0.2 mg PO BEDTIME Discharge Orders: Discharge ED (Routine); Ordered 10/24/23 Ordered By: Antoine Dominguez Referrals: Gerry Lee FNP [Primary Care Provider] - 1 week Patient Instructions: Pharyngitis (ED) Activity Restrictions/Additional Instructions: He had been prescribed a Z-Vern. This has been sent to your pharmacy. Please take all your medicine as directed. Please follow-up with your family practice physician within the next 7 days for further evaluation and treatment as needed. Please realize that you were seen in the emergency department and that we are providing you with an emergency medical screening exam and this may not be a complete and all exclusive of all testing and/or medical workup we may need to determine your element or severity of your illness. It is very important that you follow-up as instructed with your primary care provider or specialist for the additional evaluation and to discuss your medical treatment plan. You may return to the emergency department should you have concerns or if your condition changes or worsens in any way. 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
[2023-10-24 04:00] VITALS: RESP 18; O2SAT 99
== END 2023-10-24 04:03 | disposition home or self-care (01) ==
PROVIDERS: Emergency Provider Emergency Medicine; PCP Nurse Practitioner Family
DX: J02.9 Acute pharyngitis, unspecified (principal); F17.210 Nicotine dependence, cigarettes, uncomplicated
CPT/HCPCS: 99283

== ENCOUNTER 2024-03-17 00:11 | Outpatient (CLI) | payer OTHER, SELFPAY ==
--- NOTE | 2024-03-17 01:07 | CTR_ITS ---
PROCEDURE INFORMATION: Exam: CT Abdomen And Pelvis With Contrast Exam date and time: 03/17/2024 2:49 AM Age: 63 years old Clinical indication: Mass, lump, or swelling; Abdominal pain; Prior surgery; Surgery date: 6+ months; Surgery type: Hysterectomy; Patient HX: Patient C/O palpable periumbilical mass causing pain. ; Additional info: R19.00 - intra-abdominal and pelvic swelling, mass and lydia. . . TECHNIQUE: Imaging protocol: Computed tomography of the abdomen and pelvis with contrast. Radiation optimization: All CT scans at this facility use at least one of these dose optimization techniques: automated exposure control; mA and/or kV adjustment per patient size (includes targeted exams where dose is matched to clinical indication); or iterative reconstruction. Contrast material: OMNI 350; Contrast volume: 80 ml; Contrast route: INTRAVENOUS (IV); Other contrast: Oral, OMNI 350, 25 ML IN 425ML WATER; COMPARISON: US renal BI* [id number] 09/02/2021 9:10 AM RADIATION DOSE METRICS: Total DLP (mGy-cm): 755.78 FINDINGS: Lungs: Lung bases are clear as visualized. Diaphragm: There is a small hiatal hernia. Liver: There is diffuse fatty infiltration of the liver. The liver is otherwise normal. Gallbladder and biliary ducts: Normal. No calcified stones. No ductal dilation. Pancreas: Normal. No ductal dilation. Spleen: Normal. No splenomegaly. Adrenal glands: There is a low-density mass involving the left adrenal gland measuring 2.8 cm in size. The lesion measures 44 Hounsfield units in density and does not meet criteria for an adenoma on this postcontrast exam. Kidneys and ureters: There are 2 small indeterminate lesions involving the right kidney. The 1st is noted involving the lower pole of the right kidney measuring 9 mm in size in the 2nd involving the posterior mid pole cortex of the left kidney measuring 11 mm in size. Both lesions do not meet density criteria for simple cysts and may represent hemorrhagic cyst or possibly small cystic masses. Further evaluation with nonemergent ultrasound directed to these locations would be recommended. No hydronephrosis is noted. No renal calculi are identified. Stomach and bowel: There are scattered colonic diverticula. No large bowel wall thickening is appreciated. No dilated loops of large or small bowel is appreciated. Appendix: No evidence of appendicitis. Intraperitoneal space: Unremarkable. No free air. No significant fluid collection. Vasculature: The aorta is normal in caliber. There is calcified plaque involving the aorta and its branch vessels. Lymph nodes: Unremarkable. No enlarged lymph nodes. Urinary bladder: Unremarkable as visualized. Reproductive: The uterus is not definitely identified. Bones/joints: Unremarkable. No acute fracture. Soft tissues: There is a small fat filled periumbilical hernia. There is also a fat filled hernia defect just distal to the umbilicus measuring [address] dimension[address]/CT abdomen pelvis w con* [id number] IMPRESSION: 1. Fatty infiltration of the liver. 2. Indeterminate lesions involving both the right and left kidney. Please see above comments. 3. 2.8 cm left adrenal mass. Non-emergent adrenal CT is recommended. (Reference: Luisito) 4. Small fat filled periumbilical hernia with small fat filled hernia defect just distal to the umbilicus. References: Luisito PADILLA, et al. Management of Incidental Adrenal Masses: A White Paper of the ACR Incidental Findings Committee. J Am Nadiya Radiol. 2017;14(8):3589-3577. COMMENTS: Consistent with the [employer]'s Incidental Findings Committee white paper (J Am Nadiya Radiol 2018): Any incidental renal lesion less than 1 cm or classified as too small to characterize, or any incidental cystic renal lesion characterized as simple-appearing, is likely benign. No follow-up imaging is recommended for these lesions per consensus recommendations based on imaging criteria.
[2024-03-17 02:00] LABS: Basophils # 0.1 10^3/uL (0.0-0.1); Basophils % 0.8 %; Eosinophils # 0.3 10^3/uL (0.0-0.8); Eosinophils % 4.3 %; Hematocrit 41.6 % (36-47); Lymphocytes # 2.8 10^3/uL (0.8-4.8); Lymphocytes % 38.1 %; Mean Corpuscular HGB Conc 32.5 g/dL (30-55); Mean Corpuscular Hemoglobin 29.2 pg (27-33); Mean Platelet Volume 10.9 fL (7.4-10.4); Monocytes # 0.5 10^3/uL (0.2-0.9); Monocytes % 6.6 %; Neutrophils # 3.64 10^3/uL (1.8-7.7); Neutrophils % 50.2 %; Nucleated Red Blood Cells % 0 %; Platelet Count 408 10^3/cmm (157-399); Red Blood Count 4.62 10^6/uL (3.85-5.65); Red Cell Distribution Width 13.6 % (12.1-15.1); White Blood Count 7.25 10^3/uL (3.29-11.43)
[2024-03-17 02:20] LABS: Alanine Aminotransferase 10 U/L (0-33); Albumin Level 4.3 g/dL (3.5-5.2); Alkaline Phosphatase 94 U/L (35-105); Anion Gap 16.6 (5-19); Aspartate Amino Transferase 7 U/L (0-32); Blood Urea Nitrogen 14 mg/dL (8-23); Calcium 9.1 mg/dL (8.5-10.5); Carbon Dioxide 27 mmol/L (22-29); Chloride 101 mmol/L (98-107); Globulin 3.2 g/dL (1.3-4.6); Glomerular Filtration Rate 45.2 mL/min (90-130); Glucose 112 mg/dL (65-115); Osmolality Calculated 293 mOsm/kg (285-295); Potassium 3.6 mmol/L (3.5-5.1); Sodium 141 mmol/L (136-145); Total Bilirubin 0.3 mg/dL (0.15-1.2); Total Protein 7.5 g/dL (6.6-8.7)
[2024-03-17 02:44] LABS: Bilirubin Urine Negative (Negative); Blood Urine Negative (Negative); Glucose Urine UA Negative (Normal); Ketones Urine Negative (Negative); Leukocyte Esterase Urine Trace (Negative); Nitrate Urine Negative (Negative); Protein Urine Negative (Negative); Specific Gravity, Urine 1.005 (1.005-1.030); Urine Appearance Clear (CLEAR); Urine Color Yellow (Yellow); pH Urine 5.5 (5-7)
[2024-03-17 02:49] LABS: Bacteria Urine None Seen /hpf; Hyaline Casts Urine 0-4 /lpf; RBC Urine 0-2 /hpf (0-2); WBC Urine 0-5 /hpf (0-5)
[2024-03-17] MEDS: iohexol 350 mg/mL 500 mL Btl (per mL) IV (02:59)
[2024-03-17] MEDS: iohexol 350 mg/mL 500 mL Btl (per mL) PO (03:00)
== END 2024-03-17 00:12 | disposition home or self-care (01) ==
PROVIDERS: PCP Nurse Practitioner Family; Visit Provider Nurse Practitioner Family
DX: K42.9 Umbilical hernia without obstruction or gangrene (principal); I10 Essential (primary) hypertension; R31.9 Hematuria, unspecified; Z90.710 Acquired absence of both cervix and uterus; K76.0 Fatty (change of) liver, not elsewhere classified; D35.02 Benign neoplasm of left adrenal gland; D30.00 Benign neoplasm of unspecified kidney
CPT/HCPCS: 74177; 80053; 81001; 85025

== ENCOUNTER 2024-04-10 05:32 | Day surgery (SDC) | payer OTHER, SELFPAY ==
--- NOTE | 2024-04-09 20:57 | ANES.PREANE2 ---
Pre-Anesthetic Assessment Height/Weight: Height 1.57 m Operation Date: 04/10/24 07:00 Proposed Procedures p Open Umbilical Hernia Repair w/ Mesh [id number], K42.9(Not Applicable) - Lukas Powers MD Familial anesthetic complications: None Was Beta Rekha taken within 24 hours: N/A Was Clonidine taken within 24 hours: N/A Last intake: > 8 hrs Social Tobacco last cigarette 4 days ago Exam alert, oriented x 3, clear to auscultation bilaterally and regular rate & rhythm Airway Mallampati: Class II Dentition: false (Top) CV/HEM Hypertension Hepatic fatty liver GI Gastroesophageal Reflux Disease umbilical hernia Metabolic adrenal mass Anesthetic Plan ASA status: 3 Anesthesia: General Risk of > 500 ml blood loss (7ml/kg in children): No Medications/Allergies Home Medications Medication Instructions Recorded Confirmed Last Taken Type baclofen 20 mg tablet 10 mg (1/2 x 20 mg) PO TID PRN 06/28/23 04/09/24 04/07/24 Rx spasms #60 tabs valsartan 160 1 tab PO DAILY #90 tabs 02/01/24 04/09/24 04/07/24 Rx mg-hydrochlorothiazide 12.5 mg tablet clonidine HCl 0.2 mg tablet 0.2 mg PO DAILY 04/09/24 04/09/24 04/09/24 21:00 History pantoprazole 40 mg tablet,delayed 40 mg PO DAILY 04/09/24 04/09/24 03/10/24 History release nicotine 21 mg/24 hr daily 1 patch transdermal DAILY 04/10/24 04/10/24 04/10/24 05:00 History transdermal patch Allergies Allergy/AdvReac Type Severity Reaction Status Date / Time guaifenesin Allergy unknown Verified 04/09/24 12:17 Penicillins Allergy unknown Verified 04/09/24 12:17 Sulfa (Sulfonamide Allergy unknown Verified 04/09/24 12:17 Antibiotics) tramadol Allergy ALGY-Rash Verified 04/10/24 05:56 [facility] Anesthesia Medical History Adrenal mass, left Abdominal pain Bilateral renal cysts Hiatal hernia Fatty liver Umbilical hernia Palpable abdominal mass Hematuria Seborrheic keratosis Chronic middle ear effusion Hyperlipemia Hypertension Heart murmur Surgical History History of total hysterectomy Family History Brother Hypertension Social History Smoking and tobacco/nicotine status: current every day tobacco/nicotine user cigarettes Packs smoked per day: 0.50 Alcohol intake: never Substance/Drug Use: never Data Anesthesia Cardiac Studies: No Data to Display
[2024-04-10] VITALS (12 sets, daily range): BP systolic 115–134; BP diastolic 59–93; PULSE 69–83; RESP 12–21; TEMP 36.1–36.8; O2SAT 94–100; BMI 31.4
[2024-04-10] MEDS: sodium chloride 0.9% 1,000 ML 30 ML IV (06:08)
--- NOTE | 2024-04-10 07:08 | W.PM.OPSUD ---
Surgery/Procedure H&P Update DATE OF PROCEDURE: April 10, 2024 DATE H&P PERFORMED: 04/10/24 H&P UPDATE INFORMATION: I have reviewed H&P completed within last 30 days, I have examined patient prior to procedure and No changes to prior documentation PLANNED PROCEDURE: Operation Date: 04/10/24 07:00 Proposed Procedures p Open Umbilical Hernia Repair w/ Mesh [id number], K42.9(Not Applicable) - Lukas Powers MD
[2024-04-10] MEDS: VANCOMYCIN ADD-Vantage 1,000 MG in 0.9% NaCl ADD-Vantage 250 ML 250 MG IV (07:12)
[2024-04-10] MEDS: BUPivacaine 0.5% INJ 10 mL INJECTION (08:05)
[2024-04-10] MEDS: lidocaine-epi 1% 20 mL INJ INJECTION (08:05)
--- NOTE | 2024-04-10 08:18 | PM.OP ---
Operative Report Date of procedure: April 10, 2024 Pre-op diagnosis: umbilical hernia Post-op diagnosis: same Post-op findings: Fat containing umbilical hernia. 2cm fascial defect Implants: Ventralex mesh ST small Specimens removed/disposition: Sent umbilical hernia contents to pathology Pathology: Umbilical hernia contents Surgeon: Lukas Powers MD Candle Molder Machine: JORDEN Anesthesia: General Estimated blood loss (mL): 20 Complications: NA Findings: Fat contanining umbilical hernia Condition: stable Disposition: PACU Brief History: 63yo female who presented with a symptomatic umbilical hernia. Discussed risks and benefits of umbilical hernia repair using mesh and the patient agreed to proceed. Procedure: After obtaining consent in the preoperative area, the patient was brought into the operating room table. SCDs were on and functional. Preoperative Ancef was administered 2 g. General anesthesia was induced. The abdomen was prepped and draped in the usual sterile fashion. Periumbilical incision was made at the umbilicus. Electrocautery was used to dissect down to the fascial defect. The umbilical hernia sac was dissected off using combination of blunt and sharp dissection. The hernia sac was opened and found to have fat only. Sac contents were sent to pathology. The 2 cm fascial defect was freshened up. A small Ventralex mesh ST was placed intraperitoneally. I fixed the mesh to the fascial layer using interrupted 2-0 Ethibond. I then proceeded to close the fascial layer on top of the mesh using a continuous 2-0 Ethibond stitch. The deep dermal layer was closed using 3-0 Vicryl. Skin was closed using 4-0 Monocryl. Surgical glue was applied as well as a compression dressing at the surgical site. The patient will cover anesthesia without any complications and was transferred to the PACU.
[2024-04-10] MEDS: HYDROmorphone 1 mg/mL INJ 1 mL 0.5 MG IVP (08:32)
--- NOTE | 2024-04-10 08:48 | PC.NURSE ---
0818 - per Chavez DIRECTOR OF MARKETING AND PROMOTIONS if pt continues to hurt - start with Lizzy
[2024-04-10] MEDS: oxyCODONE 5 mg IR Tab/Cap PO (09:23)
--- NOTE | 2024-04-10 09:40 | ANE.PACU2 ---
Inpatient post-anesthesia follow up: Airway intact: Yes Vital signs: Temperature 97 F Pulse Rate 69 Respiratory Rate 18 Blood Pressure 115/68 Pulse Oximetry 94 Oxygen Delivery Me thod Room Air Oxygen Flow Rate 2 Fraction of Inspir ed Oxygen Hydration adequate: Yes Nausea and vomiting: No Pain level: 1 Mental status: Baseline
== END 2024-04-10 09:42 | disposition home or self-care (01) ==
PROVIDERS: PCP Nurse Practitioner Family; Visit Provider Student in an Organized Health Care Education/Training Program
PROC: (CPT 49591; principal; 2024-04-10 07:00)
DX: K42.9 Umbilical hernia without obstruction or gangrene (principal); F17.210 Nicotine dependence, cigarettes, uncomplicated; I10 Essential (primary) hypertension; K21.9 Gastro-esophageal reflux disease without esophagitis; E78.5 Hyperlipidemia, unspecified
CPT/HCPCS: 49591; 88302; J1100; J1171; J2405; J2704; J3010; J3370; J3490; J7030; J7050